=== PATIENT | male | born 1980 | race Asian ===

== ENCOUNTER 2018-12-04 11:32 | Emergency (ER) | payer SELFPAY ==
[~2018-12-04] VITALS: Ht 175.3 cm; Wt 100.0 kg
[2018-12-04 11:35] VITALS: Ht 175.3 cm; Wt 100.0 kg
[2018-12-04] MEDS ORDERED: CLOP75TA27 PO (12:37)
[2018-12-04] MEDS ORDERED: ASPI-817 PO (12:37)
[2018-12-04] MEDS ORDERED: ATOR-2 PO (12:37)
--- NOTE | 2018-12-04 12:37 | ERD ---
ER Documentation Chief Complaint Chief Complaint pt is bib self with c/o chest pain starting today, [place] 2 days ago HPI This is a very pleasant 38-year-old male with a past medical history of coronary artery disease. The patient had a cardiac stent placed into the proximal LAD at [facility] 5 days prior to arrival. He had been released from the hospital 4 days ago. The patient indicated that just prior to arrival he dev eloped a chest pressure. He stated it was left substernal and radiated to his neck. Did not radiate to the back. He stated this was the same chest pain he had felt when he had a myocardial infarction several days ago. The patient stated he took 2 nitroglycerin and the pain completely resolved. He phoned his chief science officer Dr. Deluca who indicated that she could see him immediately. However the patient stated he wanted to come to the nearest hospital to be stabilized before he drove to [facility]. Therefore he came to [facility]. He has no shortness of breath. He denied any fever shaking or chills. He denies any abdominal pain. He had no associated symptoms of nausea or vomiting. ROS All systems reviewed and are negative except as per history of present illness. Medications Home Meds Reported Medications Metoprolol Succinate* (Toprol XL*) 50 Mg Tab.er.24h, 50 MG PO DAILY, #30 TAB 12/04/18 Atorvastatin* (Atorvastatin*) 80 Mg Tablet, 80 MG PO QHS, #30 TAB 12/04/18 Aspirin* (Aspirin* EC) 81 Mg Tablet.dr, 81 MG PO DAILY, TAB 12/04/18 Clopidogrel Bisulfate (Clopidogrel) 75 Mg Tablet, 75 MG PO DAILY, #30 TAB 12/04/18 Allergies Allergies: Coded Allergies: No Known Allergy (Unverified , 12/04/18) PMhx/Soc History of Surgery: Yes (HEART STENT X2) Hx Cardiac Disorders: Yes (HTN) Hx Alcohol Use: No Hx Substance Use: No Hx Tobacco Use: No Smoking Status: Never smoker Physical Exam Vitals Vital Signs Date Temp Pulse Resp B/P (MAP) Pulse Ox O2 O2 Flow FiO2 Time Delivery Rate 12/04/18 81 17 117/81 100 Room Air 13:10 (93) 12/04/18 98.3 109 16 130/77 98 11:35 (94) Physical Exam Constitutional:Well-developed. Well-nourished. Respiratory: Not using accessory muscles of respiration.Lungs were clear to auscultation bilaterally. No rhonchi. No rales. No wheezing. Cardiovascular: Regular rate regular rhythm.No murmurs. No rubs were appreciated.S1, S2 normal. Distal pulses are palpable 2+ bilaterally. Skin: No petechia, no purpura. No lesions on the palms or the soles of the feet. No maculopapular rash. NEURO: Patient was alert, awake, orientated x3.No facial droop. Gait observed and normal with no ataxia.Speech had regular rate and rhythm. No focal neurological deficits. Result Diagram: 12/04/18 1213 12/04/18 1213 Results 24 hrs Laboratory Tests Test 12/04/18 12:13 White Blood Count 4.4 10^3/ul Red Blood Count 5.56 10^6/ul Hemoglobin 15.1 g/dl Hematocrit 44.2 % Mean Corpuscular Volume 79.5 fl Mean Corpuscular Hemoglobin 27.2 pg Mean Corpuscular Hemoglobin Concent 34.2 g/dl Red Cell Distribution Width 13.8 % Platelet Count 173 10^3/UL Mean Platelet Volume 9.4 fl Immature Granulocytes % 0.500 % Neutrophils % 76.4 % Lymphocytes % 14.9 % Monocytes % 6.8 % Eosinophils % 0.9 % Basophils % 0.5 % Nucleated Red Blood Cells % 0.0 /100WBC Immature Granulocytes # 0.020 10^3/ul Neutrophils # 3.4 10^3/ul Lymphocytes # 0.7 10^3/ul Monocytes # 0.3 10^3/ul Eosinophils # 0.0 10^3/ul Basophils # 0.0 10^3/ul Nucleated Red Blood Cells # 0.0 10^3/ul Sodium Level 143 mmol/L Potassium Level 3.8 mmol/L Chloride Level 107 mmol/L Carbon Dioxide Level 22 mmol/L Anion Gap 14 Blood Urea Nitrogen 9 mg/dl Creatinine 0.95 mg/dl Est Glomerular Filtrat Rate mL/min > 60 mL/min Glucose Level 145 mg/dl Calcium Level 9.5 mg/dl Total Bilirubin 1.3 mg/dl Direct Bilirubin 0.00 mg/dl Indirect Bilirubin 1.3 mg/dl Aspartate Amino Transf (AST/SGOT) 29 IU/L Alanine Aminotransferase (ALT/SGPT) 54 IU/L Alkaline Phosphatase 73 IU/L Troponin I < 0.012 ng/ml Total Protein 8.3 g/dl Albumin 4.5 g/dl Globulin 3.80 g/dl Albumin/Globulin Ratio 1.18 Procedures/MDM The patient presented to the emergency department with chest pain. My clinical evaluation and workup was to distinguish minor causes of chest pain from acute life threatening conditions such as myocardial infarction, pulmonary embolism, aortic dissection, esophageal rupture, cardiac tamponade. The patient was placed on a azure principal solution specialist and continuous pulse oximetry. IV access established by nursing staff. 12 Lead EKG tracing ordered and reviewed by myself showed: Sinus tachycardia 110 bpm and no arrhythmia. CA interval normal. QRS duration normal. No ST segment elevation No ST segment depression. No changes consistent with acute ischemia. The first EKG was taken 11:36 AM. The second EKG was taken at 1211. 12 Lead EKG tracing ordered and reviewed by myself showed: Normal sinus rhythm of 84 bpm and no arrhythmia. CA interval normal. QRS duration normal. No ST segment elevation No ST segment depression. No changes consistent with acute ischemia. The patient's troponin was not elevated. I did speak with the patient's cardiol ogist and I felt comfortable discharging the patient as he is good to go directly over to all of [facility] to our office for further evaluation. The patient remained on a azure principal solution specialist with no arrhythmias. The patient's chest pain had completely resolved. The patient was discharged home in fair condition. They were instructed to return to the emergency department at any time if there was any worsening of their condition. The patient stated they would follow up with their PCP in the next 24-48 hours to initiate a suitable medication regimen under the care of their PCP as well as to allow their PCP to monitor any drug reactions. The patient was discharged home with prescriptions after they gave informed consent to the new medication. They were also fully informed by myself on the adverse effects and adverse drug interactions in order to provide adequate safeguards to prevent possible adverse reactions to medications. Departure Diagnosis: Primary Impression: Chest pain Chest pain type: unspecified Qualified Codes: R07.9 - Chest pain, unspecified Condition: Fair AYLIN LIZARRAGA MD Dec 04, 2018 12:37
[2018-12-04] MEDS ORDERED: METO-319 PO (12:38)
[2018-12-04 13:10] VITALS: BP 117/81; PULSE 81; RESP 17
== END 2018-12-04 13:11 | disposition home or self-care (01) ==
LOC: E/R 11:32
DX: I10 Essential (primary) hypertension (principal); I25.2 Old myocardial infarction; I25.10 Atherosclerotic heart disease of native coronary artery without angina pectoris; Z79.82 Long term (current) use of aspirin; Z79.01 Long term (current) use of anticoagulants; Z98.61 Coronary angioplasty status
CPT/HCPCS: 80053; 84484; 85025; 93005